=== PATIENT | female | born 1940 | race African-American/Black ===

== ENCOUNTER 2021-11-15 10:00 | Observation (INO) | payer MEDICARE ==
[~2021-11-15] VITALS: Wt 101.8 kg
[2021-11-15 11:26] LABS: BASO # 0.02 K/mm3 (0.02-0.10); EOS # 0.16 K/mm3 (0.04-0.40); HEMATOCRIT 36.5 % (37.0-47.0); HEMOGLOBIN 11.8 g/dL (12.5-16.0); LYMPH# 1.44 K/mm3 (1.50-4.00); MEAN CELL VOLUME 81 fl (78-100); MEAN CORPUSCULAR HEMOGLOBIN 26 pg (27-31); MEAN CORPUSCULAR HGB CONC 32 g/dL (33-37); MEAN PLATELET VOLUME 10.3 fl (7.4-10.4); MONO # 1.13 K/mm3 (0.20-0.80); PLATELET COUNT 234 K/mm3 (130-400); RED BLOOD COUNT 4.52 M/mm3 (4.10-5.30); RED CELL DISTRIBUTION WIDTH 15.8 % (11.5-14.5); WHITE BLOOD COUNT 16.2 K/mm3 (4.8-10.8)
[2021-11-15] MEDS ORDERED: GLUCOPHAGE PO (11:47)
[2021-11-15] MEDS ORDERED: LASIX20 M1 PO (11:47)
[2021-11-15] MEDS ORDERED: SERTRALINE HYD100 MG PO (11:47)
[2021-11-15 11:48] LABS: PH-URINE 5.5 (5.0 - 8.0); URINE APPEARANCE CLOUDY; URINE BILIRUBIN NEGATIVE (NEGATIVE); URINE COLOR YELLOW; URINE GLUCOSE NEGATIVE (NEGATIVE); URINE KETONE NEGATIVE (NEGATIVE); URINE PROTEIN(semi-quant) TRACE (NEGATIVE); URINE UROBILINOGEN NORMAL (NORMAL)
[2021-11-15] MEDS ORDERED: ATORVASTATIN CA10 MG PO (11:48)
[2021-11-15] MEDS ORDERED: NORVASC 10MG10 MG PO (11:48)
[2021-11-15 11:49] LABS: URINE BLOOD TRACE (NEGATIVE); URINE LEUKOCYTE ESTERASE 2+ (NEGATIVE); URINE MUCUS PRESENT (NOT PRESENT); URINE NITRATE POSITIVE (NEGATIVE); URINE WBC >50 /hpf (0-3)
[2021-11-15 11:50] LABS: TROPONIN-I < 0.030 ng/mL (<0.030)
[2021-11-15 11:52] LABS: POTASSIUM 3.5 mmol/L (3.5-5.1)
[2021-11-15 11:53] LABS: CALCIUM 9.6 mg/dL (8.3-10.5)
[2021-11-15 11:54] LABS: TOTAL PROTEIN 6.9 g/dL (6.2-8.1)
[2021-11-15 11:56] LABS: TOTAL BILIRUBIN 0.7 mg/dL (0.2-1.2)
[2021-11-15 18:38] VITALS: BP 129/73
[2021-11-15 22:12] VITALS: BP 126/71
[2021-11-16 01:57] VITALS: BP 137/65
[2021-11-16 06:27] VITALS: BP 136/67
[2021-11-16 09:45] VITALS: BP 147/93
[2021-11-16 11:49] LABS: ALBUMIN 2.4 g/dL (3.4-4.8)
[2021-11-16 11:50] LABS: POTASSIUM 3.7 mmol/L (3.5-5.1)
[2021-11-16 11:51] LABS: CALCIUM 8.8 mg/dL (8.3-10.5)
[2021-11-16 11:52] LABS: TOTAL PROTEIN 5.7 g/dL (6.2-8.1)
[2021-11-16 11:54] LABS: TOTAL BILIRUBIN 0.3 mg/dL (0.2-1.2)
[2021-11-16 12:20] LABS: BASO # 0.03 K/mm3 (0.02-0.10); EOS # 0.49 K/mm3 (0.04-0.40); EOS % 3.9 % (1.0-5.0); HEMATOCRIT 30.3 % (37.0-47.0); HEMOGLOBIN 9.7 g/dL (12.5-16.0); MEAN CELL VOLUME 82 fl (78-100); MEAN CORPUSCULAR HEMOGLOBIN 26 pg (27-31); MEAN CORPUSCULAR HGB CONC 32 g/dL (33-37); MEAN PLATELET VOLUME 10.3 fl (7.4-10.4); MONO # 0.95 K/mm3 (0.20-0.80); PLATELET COUNT 244 K/mm3 (130-400); RED BLOOD COUNT 3.69 M/mm3 (4.10-5.30); RED CELL DISTRIBUTION WIDTH 16.2 % (11.5-14.5); WHITE BLOOD COUNT 12.6 K/mm3 (4.8-10.8)
[2021-11-16 13:48] VITALS: BP 127/76
== END 2021-11-16 13:49 | disposition other institution (70) ==
LOC: ED 10:00 → MED/SURG 12:22
PROVIDERS: ADMIT Family Medicine
DX: U07.1 COVID-19 (principal); N39.0 Urinary tract infection, site not specified; I11.0 Hypertensive heart disease with heart failure; I50.9 Heart failure, unspecified; E11.622 Type 2 diabetes mellitus with other skin ulcer; L89.899 Pressure ulcer of other site, unspecified stage; E66.9 Obesity, unspecified; L30.8 Other specified dermatitis; E78.5 Hyperlipidemia, unspecified; K21.9 Gastro-esophageal reflux disease without esophagitis; F32.A Depression, unspecified; Z79.84 Long term (current) use of oral hypoglycemic drugs; Z79.899 Other long term (current) drug therapy; Z86.711 Personal history of pulmonary embolism; Z79.01 Long term (current) use of anticoagulants; Z95.828 Presence of other vascular implants and grafts; Z86.718 Personal history of other venous thrombosis and embolism
CPT/HCPCS: G0378; J0696; J1650; J7030

== ENCOUNTER 2021-11-16 13:28 | Inpatient (IN) | payer MEDICARE ==
[~2021-11-16] VITALS: Ht 160 cm; Wt 97.0 kg
[~2021-11-16 13:28] MED LIST: ATORVASTATIN CA10 MG PO; GLUCOPHAGE PO; LASIX20 M1 PO; NORVASC 10MG10 MG PO; SERTRALINE HYD100 MG PO
[2021-11-16 18:11] VITALS: BP 138/76
--- NOTE | 2021-11-16 21:30 | NUR ---
Report received from Deja DELONG. Resting in bed watching TV. Remains in isolation for COVID-19. A/O x4. Rates pain 9/10 to RLE but refuses offer of analgesic at this time. SCD's in place to BLE. Assessment completed. Sandrita/cares provided. Barrier cream to shearing areas on buttocks. Boothe patent to DD with clear yellow urine. Dressing to R heel removed. Large amount of sero-sang drainage. Area cleansed with sterile water, patted dry. ABD pad applied with heel protector in place. L great toe blister still intact and fluid filled. HS medications taken whole without difficulty. Colace held, patient had large loose BM today per report. Denies questions, wants or needs. Bed alarm on. Call light in reach.
[2021-11-16 21:44] VITALS: BP 120/72
--- NOTE | 2021-11-17 01:06 | NUR ---
Calls for analgesic. States R foot "burning". Rates 07/03. Foot repositioned. Tylenol taken at this time. Continues on scheduled Ibuprofen.
--- NOTE | 2021-11-17 02:20 | NUR ---
Staff in to obtain V/S and administer scheduled Ibuprofen. Patient reports relief after taken Tylenol and hour ago. "I feel back to sleep". Vs obtained. Med taken. Denies further wants or needs. Heel protectors, and SCD's intact to BLE.
[2021-11-17 02:52] VITALS: BP 132/67
--- NOTE | 2021-11-17 06:18 | NUR ---
AM medication taken. R heel dressing changed x2 this shift. Denies pain or needs at this time. VSS. Remains in COVID isolation. Bed alarm on. Call light in reach.
[2021-11-17 06:20] VITALS: BP 143/70
--- NOTE | 2021-11-17 07:02 | NUR ---
Report to Jaqui DELONG.
[2021-11-17 07:26] LABS: BASO # 0.02 K/mm3 (0.02-0.10); EOS # 0.47 K/mm3 (0.04-0.40); EOS % 5.1 % (1.0-5.0); HEMATOCRIT 29.3 % (37.0-47.0); HEMOGLOBIN 9.3 g/dL (12.5-16.0); LYMPH# 1.62 K/mm3 (1.50-4.00); MEAN CELL VOLUME 82 fl (78-100); MEAN CORPUSCULAR HEMOGLOBIN 26 pg (27-31); MEAN CORPUSCULAR HGB CONC 32 g/dL (33-37); MEAN PLATELET VOLUME 9.8 fl (7.4-10.4); MONO # 0.75 K/mm3 (0.20-0.80); NEU # 6.33 K/mm3 (1.40-6.50); PLATELET COUNT 244 K/mm3 (130-400); RED BLOOD COUNT 3.56 M/mm3 (4.10-5.30); RED CELL DISTRIBUTION WIDTH 16.1 % (11.5-14.5); WHITE BLOOD COUNT 9.3 K/mm3 (4.8-10.8)
[2021-11-17 07:30] LABS: ALBUMIN 2.3 g/dL (3.4-4.8); POTASSIUM 3.3 mmol/L (3.5-5.1)
[2021-11-17 07:31] LABS: CALCIUM 8.8 mg/dL (8.3-10.5)
[2021-11-17 07:33] LABS: TOTAL PROTEIN 5.6 g/dL (6.2-8.1)
[2021-11-17 07:59] LABS: TOTAL BILIRUBIN 0.3 mg/dL (0.2-1.2)
--- NOTE | 2021-11-17 09:16 | NUR ---
Patient resting in bed eating breakfast. No c/o pain, discomfort to right side d/t fall, per patient. Ate 100% of meal. Refusing to get out of bed and sit in chair. Patient states, "I'm comfortable here." Reports she slept well last night. Cont to be in precautions for Covid-19. Bed in lowest and locked position. Call light within reach.
[2021-11-17 10:54] VITALS: BP 132/73
--- NOTE | 2021-11-17 14:14 | NUR ---
Boohte catheter clamped at this time
[2021-11-17 14:17] VITALS: BP 129/70
--- NOTE | 2021-11-17 16:40 | NUR ---
Boothe catheter unclamped. 50ml out. Patient reports no sensation to urinate during the past 2 hours.
--- NOTE | 2021-11-17 16:41 | NUR ---
Boothe catheter clamped at this time.
[2021-11-17 18:15] VITALS: BP 137/70
--- NOTE | 2021-11-17 19:00 | NUR ---
Report received from Jaqui DELONG.
--- NOTE | 2021-11-17 20:45 | NUR ---
Patient called and states she feels urge to void/pressure. Boothe catheter unclamped and urine output of 200mls received. Boothe then reclamped. Patient denies pain at this time. Right heel with large peeled off area of skin/draining moderate amount of yellow red drainage. Cleansed with saline and dressing of stacked 4x4s and ABD pad applied. Bilateral swelling to feet noted 2+. Heels floated and heel cushions on. SCD's on. FOB elevated. Snack of jello given.
[2021-11-17 22:18] VITALS: BP 134/63
--- NOTE | 2021-11-17 22:30 | NUR ---
Patient reported urge to void and meade catheter unclamped and 200mls had 200mls urine. Catheter reclamped.
--- NOTE | 2021-11-18 00:05 | NUR ---
Patient reports bladder pressure and catheter unclamped with 50 mls return. Patient also incontinent of large amount of urine and good laya-care done and changed. 3 wounds noted to below buttucks on left side and 3 large wounds to right buttuck and across posterior right thigh. Areas cleansed and barrier cream applied.
--- NOTE | 2021-11-18 01:15 | NUR ---
Patient reports urge to void and catheter unclamped with 200mls return of urine. Reclamped.
[2021-11-18 02:07] VITALS: BP 137/66
--- NOTE | 2021-11-18 06:00 | NUR ---
Patient resting in bed awake. States everytime she started to fall asleep she felt like she had to urinate. Catheter clamped at this time after emptied. Incontinent of urine and changed. Good laya-care and wounds to lower buttucks and right posterior thigh cleansed and barrier cream applied. Centers pink and no drainage. Heel and outer ankle wound cleansed with saline, patted dry and new dressing of stacked 4x4s and ABD applied followed by heel cushions.
[2021-11-18 06:13] VITALS: BP 150/71
[2021-11-18 06:58] LABS: BASO # 0.03 K/mm3 (0.02-0.10); EOS # 0.49 K/mm3 (0.04-0.40); EOS % 5.5 % (1.0-5.0); HEMATOCRIT 29.2 % (37.0-47.0); HEMOGLOBIN 9.3 g/dL (12.5-16.0); LYMPH# 1.84 K/mm3 (1.50-4.00); MEAN CELL VOLUME 81 fl (78-100); MEAN CORPUSCULAR HEMOGLOBIN 26 pg (27-31); MEAN CORPUSCULAR HGB CONC 32 g/dL (33-37); MEAN PLATELET VOLUME 9.5 fl (7.4-10.4); MONO # 0.68 K/mm3 (0.20-0.80); NEU # 5.91 K/mm3 (1.40-6.50); PLATELET COUNT 273 K/mm3 (130-400); RED BLOOD COUNT 3.62 M/mm3 (4.10-5.30); RED CELL DISTRIBUTION WIDTH 15.7 % (11.5-14.5)
[2021-11-18 07:02] LABS: ALBUMIN 2.4 g/dL (3.4-4.8); POTASSIUM 3.4 mmol/L (3.5-5.1)
[2021-11-18 07:04] LABS: TOTAL PROTEIN 5.8 g/dL (6.2-8.1)
[2021-11-18 07:06] LABS: TOTAL BILIRUBIN 0.3 mg/dL (0.2-1.2)
[2021-11-18 09:56] VITALS: BP 135/65
--- NOTE | 2021-11-18 10:57 | NUR ---
Patient resting in bed. A&Ox4, RA, no c/o pain or discomfort. Reports she had a bm in bed. 2x total assist with pericare. DANTE Nevarez at bedside. Patient encouraged to call before using the restroom in bed. Encouraged to use the commode or ambulate with toilet. Agreeable to request. Plans to use the call light prior to voiding or having bm in bed. Patient refusing to sit up in chair at this time. Boothe catheter removed at this time. Wound care complete. Bed in lowest and locked position. Call light within reach.
[2021-11-18 14:32] VITALS: BP 131/75
--- NOTE | 2021-11-18 16:24 | NUR ---
This nurse spoke with Smiley Buckner at the wound clinic. She is available to manage patient's wound care after her acute stay. There isn't wound care treatment for wound care. DANTE Nevarez notified. Consent to take pictures of wounds for medical purposes in chart. Wound care mangaed by provider, see orders
--- NOTE | 2021-11-18 16:44 | NUR ---
Follow up call to [facility] [address] [place] [address] They will call me back.
[2021-11-18 17:19] VITALS: BP 121/65
--- NOTE | 2021-11-18 20:00 | NUR ---
Report received from Jaqui DELONG. Patient calls and states she has to use the bathroom. Staff in to assist 2:1 pivot to BSC. Voids and had a small soft formed BM. Sandrita cares provided. Barrier cream applied to shearing wounds on buttocks. Assisted back to bed. Assessment completed. Wound care provided to R heel/ankle. HS medications taken whole. Colace held. Remains on COVID isolation. Bed alarm on. Call light in reach.
[2021-11-18 21:42] VITALS: BP 118/61
--- NOTE | 2021-11-19 02:11 | NUR ---
Awakened for AM vital signs and scheduled Ibuprofen. Sleeping well. Brief dry. Denies need to go to BSC at this time. Dressing to R foot/ankle changed. Cleansed with sterile water, patteed dry. Telfa, 4x4's ABD and purvi applied. Heel protectors in place.
[2021-11-19 02:14] VITALS: BP 135/67
[2021-11-19 05:24] VITALS: BP 164/89
[2021-11-19 06:56] LABS: BASO # 0.03 K/mm3 (0.02-0.10); EOS # 0.47 K/mm3 (0.04-0.40); EOS % 5.2 % (1.0-5.0); HEMATOCRIT 30.3 % (37.0-47.0); HEMOGLOBIN 9.9 g/dL (12.5-16.0); LYMPH# 1.65 K/mm3 (1.50-4.00); MEAN CELL VOLUME 81 fl (78-100); MEAN CORPUSCULAR HEMOGLOBIN 26 pg (27-31); MEAN CORPUSCULAR HGB CONC 33 g/dL (33-37); MEAN PLATELET VOLUME 9.4 fl (7.4-10.4); MONO # 0.72 K/mm3 (0.20-0.80); NEU # 6.13 K/mm3 (1.40-6.50); PLATELET COUNT 317 K/mm3 (130-400); RED BLOOD COUNT 3.76 M/mm3 (4.10-5.30); RED CELL DISTRIBUTION WIDTH 15.9 % (11.5-14.5); WHITE BLOOD COUNT 9.1 K/mm3 (4.8-10.8)
[2021-11-19 07:01] LABS: POTASSIUM 3.7 mmol/L (3.5-5.1)
[2021-11-19 07:02] LABS: CALCIUM 9.1 mg/dL (8.3-10.5)
--- NOTE | 2021-11-19 07:14 | NUR ---
Report to Jaqui DELONG.
--- NOTE | 2021-11-19 09:34 | NUR ---
Patient A&Ox4, RA, c/o pain in BLE rating it a 5 out of 10 on a numeric pain scale. Transfered 2 assist with gait belt and walker from bed to chair. Reports she slept well last night. Chair in locked position. Call light within reach.
[2021-11-19 10:30] VITALS: BP 168/97
--- NOTE | 2021-11-19 11:15 | NUR ---
Called [facility].
[2021-11-19 14:53] VITALS: BP 133/69
== END 2021-11-19 15:41 | disposition swing bed (61) | DRG 178 ==
LOC: MED/SURG 13:28
PROVIDERS: Physician Assistant; ADMIT Family Medicine
DX: U07.1 COVID-19 (principal); N39.0 Urinary tract infection, site not specified; E11.9 Type 2 diabetes mellitus without complications; I50.9 Heart failure, unspecified; F32.A Depression, unspecified; I11.0 Hypertensive heart disease with heart failure; K21.9 Gastro-esophageal reflux disease without esophagitis; D63.8 Anemia in other chronic diseases classified elsewhere; L89.90 Pressure ulcer of unspecified site, unspecified stage; E87.6 Hypokalemia; E55.9 Vitamin D deficiency, unspecified; E66.9 Obesity, unspecified; E78.5 Hyperlipidemia, unspecified; R53.81 Other malaise; Z68.37 Body mass index [BMI] 37.0-37.9, adult; Z86.711 Personal history of pulmonary embolism; Z86.718 Personal history of other venous thrombosis and embolism; Z95.828 Presence of other vascular implants and grafts
CPT/HCPCS: J0696; J1650

== ENCOUNTER 2021-11-19 15:19 | Inpatient (IN) | payer MEDICARE ==
[~2021-11-19] VITALS: Ht 160 cm; Wt 101.8 kg
[2021-11-19 18:00] VITALS: BP 112/73
[2021-11-20 06:04] VITALS: BP 115/83
[2021-11-20 17:59] VITALS: BP 135/79
[2021-11-21 05:28] VITALS: BP 134/77
[2021-11-21 18:11] VITALS: BP 151/80
[2021-11-22 05:47] VITALS: BP 161/84
[2021-11-22 14:50] VITALS: BP 146/71
[2021-11-23 05:11] VITALS: BP 158/89
[2021-11-23 17:36] VITALS: BP 127/59
[2021-11-24 05:39] VITALS: BP 140/72
[2021-11-24 17:20] VITALS: BP 144/77
[2021-11-25 05:35] VITALS: BP 157/68
[2021-11-25 09:39] LABS: POTASSIUM 3.9 mmol/L (3.5-5.1)
[2021-11-25 09:41] LABS: CALCIUM 9.9 mg/dL (8.3-10.5)
[2021-11-25 09:42] LABS: TOTAL PROTEIN 7.1 g/dL (6.2-8.1)
[2021-11-25 09:43] LABS: BASO # 0.03 K/mm3 (0.02-0.10); EOS # 0.33 K/mm3 (0.04-0.40); EOS % 3.8 % (1.0-5.0); HEMATOCRIT 34.7 % (37.0-47.0); HEMOGLOBIN 10.8 g/dL (12.5-16.0); LYMPH# 1.92 K/mm3 (1.50-4.00); MEAN CELL VOLUME 83 fl (78-100); MEAN CORPUSCULAR HEMOGLOBIN 26 pg (27-31); MEAN CORPUSCULAR HGB CONC 31 g/dL (33-37); MEAN PLATELET VOLUME 8.9 fl (7.4-10.4); MONO # 0.72 K/mm3 (0.20-0.80); NEU # 5.63 K/mm3 (1.40-6.50); PLATELET COUNT 431 K/mm3 (130-400); RED BLOOD COUNT 4.19 M/mm3 (4.10-5.30); RED CELL DISTRIBUTION WIDTH 16.6 % (11.5-14.5); WHITE BLOOD COUNT 8.7 K/mm3 (4.8-10.8)
[2021-11-25 09:44] LABS: TOTAL BILIRUBIN 0.2 mg/dL (0.2-1.2)
[2021-11-25 17:14] VITALS: BP 156/84
[2021-11-26 05:42] VITALS: BP 146/76
[2021-11-26 10:25] VITALS: BP 114/84; BP 80/43
[2021-11-26 18:21] VITALS: BP 129/75
[2021-11-27 05:50] VITALS: BP 136/80
[2021-11-27 18:15] VITALS: BP 133/75
[2021-11-27 23:37] LABS: URINE APPEARANCE HAZY; URINE COLOR YELLOW; URINE PROTEIN(semi-quant) TRACE (NEGATIVE)
[2021-11-27 23:38] LABS: URINE BILIRUBIN NEGATIVE (NEGATIVE); URINE BLOOD 50 ery/uL (NEGATIVE); URINE GLUCOSE NEGATIVE (NEGATIVE); URINE KETONE NEGATIVE (NEGATIVE); URINE LEUKOCYTE ESTERASE TRACE (NEGATIVE); URINE NITRATE NEGATIVE (NEGATIVE); URINE UROBILINOGEN NORMAL (NORMAL)
[2021-11-27 23:40] LABS: URINE MUCUS PRESENT (NOT PRESENT)
[2021-11-28 06:17] VITALS: BP 149/78
[2021-11-28 18:01] VITALS: BP 136/68
[2021-11-29 05:32] VITALS: BP 126/64
[2021-11-29 14:06] VITALS: BP 144/81
[2021-11-30 05:50] VITALS: BP 136/72
[2021-11-30 10:56] LABS: PH-URINE 5.5 (5.0 - 8.0); URINE APPEARANCE HAZY; URINE BILIRUBIN NEGATIVE (NEGATIVE); URINE BLOOD TRACE (NEGATIVE); URINE COLOR YELLOW; URINE GLUCOSE NEGATIVE (NEGATIVE); URINE KETONE NEGATIVE (NEGATIVE); URINE LEUKOCYTE ESTERASE TRACE (NEGATIVE); URINE NITRATE NEGATIVE (NEGATIVE); URINE PROTEIN(semi-quant) TRACE (NEGATIVE); URINE UROBILINOGEN NORMAL (NORMAL)
[2021-11-30 15:06] LABS: BASO # 0.02 K/mm3 (0.02-0.10); EOS # 0.35 K/mm3 (0.04-0.40); EOS % 3.6 % (1.0-5.0); HEMATOCRIT 34.3 % (37.0-47.0); HEMOGLOBIN 10.9 g/dL (12.5-16.0); LYMPH# 1.98 K/mm3 (1.50-4.00); MEAN CELL VOLUME 82 fl (78-100); MEAN CORPUSCULAR HEMOGLOBIN 26 pg (27-31); MEAN CORPUSCULAR HGB CONC 32 g/dL (33-37); MEAN PLATELET VOLUME 9.3 fl (7.4-10.4); MONO # 0.77 K/mm3 (0.20-0.80); NEU # 6.58 K/mm3 (1.40-6.50); PLATELET COUNT 421 K/mm3 (130-400); RED CELL DISTRIBUTION WIDTH 17.3 % (11.5-14.5); WHITE BLOOD COUNT 9.7 K/mm3 (4.8-10.8)
[2021-11-30 15:31] LABS: ALBUMIN 3.4 g/dL (3.4-4.8); POTASSIUM 4.5 mmol/L (3.5-5.1)
[2021-11-30 15:32] LABS: CALCIUM 10.4 mg/dL (8.3-10.5)
[2021-11-30 15:33] LABS: TOTAL PROTEIN 7.8 g/dL (6.2-8.1)
[2021-11-30 15:35] LABS: TOTAL BILIRUBIN 0.2 mg/dL (0.2-1.2)
[2021-11-30 16:41] VITALS: BP 134/58
[2021-12-01 06:00] VITALS: BP 128/71
[2021-12-01 07:54] LABS: ALBUMIN 3.2 g/dL (3.4-4.8); POTASSIUM 4.2 mmol/L (3.5-5.1)
[2021-12-01 07:55] LABS: CALCIUM 10.1 mg/dL (8.3-10.5)
[2021-12-01 07:58] LABS: TOTAL BILIRUBIN 0.4 mg/dL (0.2-1.2)
[2021-12-01 08:01] LABS: BASO # 0.03 K/mm3 (0.02-0.10); EOS # 0.32 K/mm3 (0.04-0.40); EOS % 4.2 % (1.0-5.0); HEMATOCRIT 32.2 % (37.0-47.0); HEMOGLOBIN 10.1 g/dL (12.5-16.0); MEAN CELL VOLUME 83 fl (78-100); MEAN CORPUSCULAR HEMOGLOBIN 26 pg (27-31); MEAN CORPUSCULAR HGB CONC 31 g/dL (33-37); MEAN PLATELET VOLUME 9.2 fl (7.4-10.4); MONO # 0.66 K/mm3 (0.20-0.80); NEU # 4.74 K/mm3 (1.40-6.50); PLATELET COUNT 386 K/mm3 (130-400); RED CELL DISTRIBUTION WIDTH 17.4 % (11.5-14.5); WHITE BLOOD COUNT 7.7 K/mm3 (4.8-10.8)
== END 2021-12-01 09:00 | disposition other institution (70) | DRG 947 ==
LOC: MED/SURG 15:19
PROVIDERS: Nurse Practitioner; Physician Assistant; ADMIT Family Medicine
DX: R53.81 Other malaise (principal); U07.1 COVID-19; N39.0 Urinary tract infection, site not specified; E11.9 Type 2 diabetes mellitus without complications; I10 Essential (primary) hypertension; K21.9 Gastro-esophageal reflux disease without esophagitis; L89.619 Pressure ulcer of right heel, unspecified stage; L89.899 Pressure ulcer of other site, unspecified stage; E66.9 Obesity, unspecified; Z68.39 Body mass index [BMI] 39.0-39.9, adult; E55.9 Vitamin D deficiency, unspecified; D64.9 Anemia, unspecified; F32.A Depression, unspecified; L30.9 Dermatitis, unspecified; E78.5 Hyperlipidemia, unspecified; Z95.828 Presence of other vascular implants and grafts
CPT/HCPCS: J0696; J2543

== ENCOUNTER 2021-12-01 09:00 | Inpatient (IN) | payer MEDICARE ==
[2021-12-01 10:00] VITALS: BP 115/73
[2021-12-01 14:10] VITALS: BP 136/75
[2021-12-01 17:07] VITALS: BP 115/73
[2021-12-01 22:25] VITALS: BP 144/75
[2021-12-02 02:07] VITALS: BP 108/66
[2021-12-02 06:20] VITALS: BP 104/68
[2021-12-02 10:00] VITALS: BP 138/65; BP 157/82
[2021-12-02 15:30] VITALS: BP 144/79
[2021-12-02 18:26] VITALS: BP 157/87
[2021-12-02 22:28] VITALS: BP 131/74
[2021-12-03 06:05] VITALS: BP 137/71
[2021-12-03 07:30] LABS: BASO # 0.04 K/mm3 (0.02-0.10); EOS # 0.36 K/mm3 (0.04-0.40); EOS % 4.5 % (1.0-5.0); HEMATOCRIT 33.4 % (37.0-47.0); HEMOGLOBIN 10.4 g/dL (12.5-16.0); LYMPH# 2.51 K/mm3 (1.50-4.00); MEAN CELL VOLUME 84 fl (78-100); MEAN CORPUSCULAR HEMOGLOBIN 26 pg (27-31); MEAN CORPUSCULAR HGB CONC 31 g/dL (33-37); MEAN PLATELET VOLUME 9.2 fl (7.4-10.4); MONO # 0.59 K/mm3 (0.20-0.80); PLATELET COUNT 359 K/mm3 (130-400); RED BLOOD COUNT 3.99 M/mm3 (4.10-5.30); RED CELL DISTRIBUTION WIDTH 17.5 % (11.5-14.5)
[2021-12-03 07:32] LABS: POTASSIUM 3.8 mmol/L (3.5-5.1)
[2021-12-03 07:33] LABS: CALCIUM 9.8 mg/dL (8.3-10.5)
[2021-12-03 10:00] VITALS: BP 129/78
[2021-12-03 14:00] VITALS: BP 140/74
[2021-12-03 18:00] VITALS: BP 145/66
[2021-12-03 22:51] VITALS: BP 119/69
[2021-12-04 02:31] VITALS: BP 144/74
[2021-12-04 06:04] VITALS: BP 145/73
[2021-12-04 10:17] VITALS: BP 152/99
[2021-12-04 14:10] VITALS: BP 157/73
[2021-12-04 17:44] VITALS: BP 157/83
[2021-12-04 23:36] VITALS: BP 132/76
[2021-12-05 06:06] VITALS: BP 148/76
[2021-12-05 07:34] LABS: BASO # 0.03 K/mm3 (0.02-0.10); EOS # 0.36 K/mm3 (0.04-0.40); EOS % 4.8 % (1.0-5.0); HEMATOCRIT 29.7 % (37.0-47.0); HEMOGLOBIN 9.3 g/dL (12.5-16.0); LYMPH# 1.77 K/mm3 (1.50-4.00); MEAN CELL VOLUME 84 fl (78-100); MEAN CORPUSCULAR HEMOGLOBIN 26 pg (27-31); MEAN CORPUSCULAR HGB CONC 31 g/dL (33-37); MEAN PLATELET VOLUME 9.2 fl (7.4-10.4); MONO # 0.62 K/mm3 (0.20-0.80); NEU # 4.67 K/mm3 (1.40-6.50); PLATELET COUNT 287 K/mm3 (130-400); RED BLOOD COUNT 3.55 M/mm3 (4.10-5.30); RED CELL DISTRIBUTION WIDTH 17.3 % (11.5-14.5); WHITE BLOOD COUNT 7.5 K/mm3 (4.8-10.8)
[2021-12-05 07:54] LABS: ALBUMIN 2.8 g/dL (3.4-4.8); POTASSIUM 3.3 mmol/L (3.5-5.1)
[2021-12-05 07:55] LABS: CALCIUM 9.2 mg/dL (8.3-10.5)
[2021-12-05 07:56] LABS: TOTAL PROTEIN 6.4 g/dL (6.2-8.1)
[2021-12-05 07:58] LABS: TOTAL BILIRUBIN 0.2 mg/dL (0.2-1.2)
[2021-12-05 10:06] VITALS: BP 147/68
[2021-12-05 14:03] VITALS: BP 114/74
[2021-12-05 15:53] VITALS: BP 132/78
[2021-12-05 21:56] VITALS: BP 147/77
[2021-12-06 02:00] VITALS: BP 133/80
[2021-12-06 05:09] VITALS: BP 150/75
[2021-12-06 10:04] VITALS: BP 156/78
[2021-12-06 14:06] VITALS: BP 137/73
[2021-12-06 18:11] VITALS: BP 140/77
[2021-12-06 23:19] VITALS: BP 146/73
[2021-12-07 05:28] VITALS: BP 147/76
[2021-12-07 07:00] LABS: HEMOGLOBIN 9.9 g/dL (12.5-16.0); MEAN PLATELET VOLUME 9.2 fl (7.4-10.4); RED BLOOD COUNT 3.77 M/mm3 (4.10-5.30); RED CELL DISTRIBUTION WIDTH 17.3 % (11.5-14.5)
[2021-12-07 07:06] LABS: POTASSIUM 3.8 mmol/L (3.5-5.1)
[2021-12-07 07:07] LABS: CALCIUM 9.9 mg/dL (8.3-10.5)
[2021-12-07 10:23] VITALS: BP 145/69
== END 2021-12-07 13:15 | disposition swing bed (61) | DRG 638 ==
LOC: MED/SURG 09:00
PROVIDERS: Family Medicine; ADMIT Physician Assistant
PROC: 0HBMXZZ Excision of Right Foot Skin, External Approach (ICD-10-PCS; principal; 2021-12-07)
DX: E11.621 Type 2 diabetes mellitus with foot ulcer (principal); N39.0 Urinary tract infection, site not specified; L97.411 Non-pressure chronic ulcer of right heel and midfoot limited to breakdown of skin; I82.409 Acute embolism and thrombosis of unspecified deep veins of unspecified lower extremity; E11.51 Type 2 diabetes mellitus with diabetic peripheral angiopathy without gangrene; E11.42 Type 2 diabetes mellitus with diabetic polyneuropathy; I50.9 Heart failure, unspecified; I11.0 Hypertensive heart disease with heart failure; F32.A Depression, unspecified; K21.9 Gastro-esophageal reflux disease without esophagitis; D64.9 Anemia, unspecified; F41.9 Anxiety disorder, unspecified; L30.9 Dermatitis, unspecified; E55.9 Vitamin D deficiency, unspecified; E78.5 Hyperlipidemia, unspecified; E66.9 Obesity, unspecified; R53.81 Other malaise; Z79.84 Long term (current) use of oral hypoglycemic drugs; Z95.828 Presence of other vascular implants and grafts; Z86.16 Personal history of COVID-19; Z86.711 Personal history of pulmonary embolism
CPT/HCPCS: A9585; J2543; L4386

== ENCOUNTER 2021-12-07 07:00 | Inpatient (IN) | payer MEDICARE ==
[~2021-12-07] VITALS: Ht 160 cm; Wt 101.8 kg
[2021-12-07 14:32] VITALS: BP 142/71
[2021-12-07 17:54] VITALS: BP 146/74
[2021-12-08 05:47] VITALS: BP 141/73
[2021-12-08 07:02] LABS: BASO # 0.04 K/mm3 (0.02-0.10); EOS # 0.28 K/mm3 (0.04-0.40); EOS % 3.5 % (1.0-5.0); HEMATOCRIT 31.5 % (37.0-47.0); HEMOGLOBIN 9.9 g/dL (12.5-16.0); LYMPH# 2.09 K/mm3 (1.50-4.00); MEAN CELL VOLUME 84 fl (78-100); MEAN CORPUSCULAR HEMOGLOBIN 26 pg (27-31); MEAN CORPUSCULAR HGB CONC 31 g/dL (33-37); MEAN PLATELET VOLUME 9.6 fl (7.4-10.4); MONO # 0.67 K/mm3 (0.20-0.80); NEU # 4.85 K/mm3 (1.40-6.50); PLATELET COUNT 259 K/mm3 (130-400); RED BLOOD COUNT 3.77 M/mm3 (4.10-5.30); RED CELL DISTRIBUTION WIDTH 17.6 % (11.5-14.5)
[2021-12-08 07:03] LABS: POTASSIUM 3.5 mmol/L (3.5-5.1)
[2021-12-08 07:04] LABS: CALCIUM 9.6 mg/dL (8.3-10.5)
[2021-12-08 18:34] VITALS: BP 145/76
[2021-12-09 06:04] VITALS: BP 149/74
[2021-12-09] MEDS ORDERED: BACTRIM DS TAB1 EACH PO (10:17)
== END 2021-12-09 14:40 | disposition home health service (06) | DRG 638 ==
LOC: MED/SURG 07:00
PROVIDERS: ADMIT Nurse Practitioner
PROC: 0HBMXZZ Excision of Right Foot Skin, External Approach (ICD-10-PCS; principal; 2021-12-07)
DX: E11.621 Type 2 diabetes mellitus with foot ulcer (principal); L97.419 Non-pressure chronic ulcer of right heel and midfoot with unspecified severity; N39.0 Urinary tract infection, site not specified; I11.0 Hypertensive heart disease with heart failure; I50.9 Heart failure, unspecified; I82.401 Acute embolism and thrombosis of unspecified deep veins of right lower extremity; D64.9 Anemia, unspecified; K21.9 Gastro-esophageal reflux disease without esophagitis; L30.9 Dermatitis, unspecified; E55.9 Vitamin D deficiency, unspecified; E66.9 Obesity, unspecified; Z68.39 Body mass index [BMI] 39.0-39.9, adult; E78.5 Hyperlipidemia, unspecified; R53.81 Other malaise; Z79.84 Long term (current) use of oral hypoglycemic drugs; Z86.711 Personal history of pulmonary embolism; Z86.16 Personal history of COVID-19
CPT/HCPCS: J2543

== ENCOUNTER 2021-12-29 13:46 | Emergency (ER) | payer MEDICARE ==
[~2021-12-29] VITALS: Ht 160 cm; Wt 98.5 kg
[~2021-12-29 13:46] MED LIST changes: +BACTRIM DS TAB1 EACH PO
[2021-12-29 15:12] LABS: BASO # 0.04 K/mm3 (0.02-0.10); EOS # 0.44 K/mm3 (0.04-0.40); HEMATOCRIT 32.2 % (37.0-47.0); HEMOGLOBIN 10.1 g/dL (12.5-16.0); LYMPH# 1.48 K/mm3 (1.50-4.00); MEAN CELL VOLUME 83 fl (78-100); MEAN CORPUSCULAR HEMOGLOBIN 26 pg (27-31); MEAN CORPUSCULAR HGB CONC 31 g/dL (33-37); MEAN PLATELET VOLUME 9.4 fl (7.4-10.4); MONO # 0.84 K/mm3 (0.20-0.80); NEU # 5.92 K/mm3 (1.40-6.50); PLATELET COUNT 301 K/mm3 (130-400); RED BLOOD COUNT 3.86 M/mm3 (4.10-5.30); RED CELL DISTRIBUTION WIDTH 16.4 % (11.5-14.5); WHITE BLOOD COUNT 8.7 K/mm3 (4.8-10.8)
[2021-12-29 15:30] LABS: CALCIUM 10.2 mg/dL (8.3-10.5)
[2021-12-29 15:57] LABS: POTASSIUM 2.8 mmol/L (3.5-5.1)
[2021-12-29 15:58] LABS: URINE COLOR YELLOW
[2021-12-29 15:59] LABS: URINE APPEARANCE CLEAR; URINE BILIRUBIN NEGATIVE (NEGATIVE); URINE BLOOD NEGATIVE (NEGATIVE); URINE GLUCOSE NEGATIVE (NEGATIVE); URINE KETONE NEGATIVE (NEGATIVE); URINE LEUKOCYTE ESTERASE TRACE (NEGATIVE); URINE MUCUS PRESENT (NOT PRESENT); URINE NITRATE NEGATIVE (NEGATIVE); URINE PROTEIN(semi-quant) TRACE (NEGATIVE); URINE UROBILINOGEN NORMAL (NORMAL)
[2021-12-29] MEDS ORDERED: CETIRIZINE HCL10 MG PO (16:38)
[2021-12-29] MEDS ORDERED: POTASSIUM CHLO20 ME4 PO (16:48)
[2021-12-29] MEDS ORDERED: VENELEX OINTM56.7 GM TP (16:48)
[2021-12-29 17:13] VITALS: BP 122/78
== END 2021-12-29 17:00 | disposition home or self-care (01) ==
LOC: ED 13:46
PROVIDERS: Physician Assistant
DX: T81.89XA Other complications of procedures, not elsewhere classified, initial encounter (principal); E87.6 Hypokalemia; E11.9 Type 2 diabetes mellitus without complications; L89.899 Pressure ulcer of other site, unspecified stage; R19.7 Diarrhea, unspecified

== ENCOUNTER → 2022-01-01 | Outpatient (CLI) | payer MEDICARE ==
[~2022-01-01] MED LIST changes: +CETIRIZINE HCL10 MG PO; +POTASSIUM CHLO20 ME4 PO; +VENELEX OINTM56.7 GM TP
[2022-01-01 11:44] LABS: POTASSIUM 3.4 mmol/L (3.5-5.1)
[2022-01-01 11:45] LABS: CALCIUM 10.4 mg/dL (8.3-10.5)
== END ==
LOC: LAB 11:27
PROVIDERS: Family Medicine
DX: Z01.89 Encounter for other specified special examinations (principal)

== ENCOUNTER → 2022-01-13 | Outpatient (CLI) | payer MEDICARE ==
[2022-01-13 12:10] LABS: BASO # 0.02 K/mm3 (0.02-0.10); EOS # 0.28 K/mm3 (0.04-0.40); EOS % 2.9 % (1.0-5.0); HEMOGLOBIN 10.6 g/dL (12.5-16.0); LYMPH# 1.25 K/mm3 (1.50-4.00); MEAN CELL VOLUME 84 fl (78-100); MEAN CORPUSCULAR HEMOGLOBIN 26 pg (27-31); MEAN CORPUSCULAR HGB CONC 31 g/dL (33-37); MEAN PLATELET VOLUME 9.2 fl (7.4-10.4); MONO # 0.77 K/mm3 (0.20-0.80); NEU # 7.22 K/mm3 (1.40-6.50); PLATELET COUNT 372 K/mm3 (130-400); RED BLOOD COUNT 4.07 M/mm3 (4.10-5.30); RED CELL DISTRIBUTION WIDTH 16.3 % (11.5-14.5); WHITE BLOOD COUNT 9.6 K/mm3 (4.8-10.8)
[2022-01-13 12:19] LABS: ALBUMIN 3.2 g/dL (3.4-4.8); POTASSIUM 3.2 mmol/L (3.5-5.1)
[2022-01-13 12:21] LABS: CALCIUM 10.2 mg/dL (8.3-10.5)
[2022-01-13 12:22] LABS: TOTAL PROTEIN 7.6 g/dL (6.2-8.1)
[2022-01-13 12:24] LABS: TOTAL BILIRUBIN 0.3 mg/dL (0.2-1.2)
== END ==
LOC: LAB 11:47
PROVIDERS: Family Medicine
DX: U07.1 COVID-19 (principal); E11.9 Type 2 diabetes mellitus without complications; F07.81 Postconcussional syndrome; E78.2 Mixed hyperlipidemia; K21.9 Gastro-esophageal reflux disease without esophagitis; I10 Essential (primary) hypertension; L97.409 Non-pressure chronic ulcer of unspecified heel and midfoot with unspecified severity; N17.9 Acute kidney failure, unspecified; E66.9 Obesity, unspecified; I50.22 Chronic systolic (congestive) heart failure; E55.9 Vitamin D deficiency, unspecified

== ENCOUNTER → 2022-03-01 | Outpatient (CLI) | payer MEDICARE ==
[2022-03-01 12:48] LABS: POTASSIUM 3.3 mmol/L (3.5-5.1)
[2022-03-01 12:49] LABS: CALCIUM 9.1 mg/dL (8.3-10.5)
== END | disposition still patient (30) ==
LOC: LAB 12:13
DX: Z01.89 Encounter for other specified special examinations (principal)

== ENCOUNTER → 2022-04-20 | Outpatient (CLI) | payer MEDICARE | LOC: RAD 14:41 | DX: M25.552 Pain in left hip (principal); G89.29 Other chronic pain ==

== ENCOUNTER → 2022-04-22 | Outpatient (CLI) | payer MEDICARE | LOC: LAB 16:54 | DX: M25.552 Pain in left hip (principal); R19.7 Diarrhea, unspecified ==